=== PATIENT | male | born 1960 | race African-American/Black ===

== ENCOUNTER 2019-03-11 18:27 | Emergency (ER) | payer MEDICAID ==
[~2019-03-11] VITALS: Ht 167.6 cm; Wt 67.0 kg
[2019-03-11] MEDS ORDERED: MORPHINE SULFATE 10 MG/ML CPJ IM ONE (19:15)
[2019-03-11] MEDS ORDERED: CEFTRIAXONE 1 G PREMIX 50 ML IV ONE (23:15)
[2019-03-11] MEDS ORDERED: TETANUS, DIPHTHERIA, PERTUSSIS VAC/PF 0.5ML (>7YR OLD) IM ONE (23:15)
[2019-03-12 03:27] VITALS: BP 130/78
== END 2019-03-12 03:41 | disposition short-term general hospital (02) ==
LOC: ER 18:41
DX: S02.69XA Fracture of mandible of other specified site, initial encounter for closed fracture (principal); S32.008A Other fracture of unspecified lumbar vertebra, initial encounter for closed fracture; F17.200 Nicotine dependence, unspecified, uncomplicated; Y08.89XA Assault by other specified means, initial encounter; Y93.89 Activity, other specified; Y92.89 Other specified places as the place of occurrence of the external cause; Y99.8 Other external cause status
CPT/HCPCS: 70450; 70486; 71250; 72131; 90471; 90715; 96365; 96375; 99285; J0696; J2270